=== PATIENT | female | born 1990 | race Caucasian/White ===

== ENCOUNTER 2023-04-06 14:09 | Emergency (ER) | payer OTHER, SELFPAY ==
[2023-04-06 14:17] VITALS: BP 125/67; PULSE 114; RESP 18; TEMP 37.2; O2SAT 98
--- NOTE | 2023-04-06 14:22 | ED.EAR ---
HPI - Ear Problem General Chief complaint: Ear Stated complaint: Ear Pain Time Seen by Provider: 04/06/23 14:22 Source: patient and RN notes reviewed History of Present Illness HPI Narrative: Patient is a 32-year-old female presents to urgent care with complaints of right ear pain. Patient states she had a lighted a sinus pressure and heavily blew her nose last night causing immediate muffled sound, drainage from the ear and pain. Patient has not taken anything [id number]. Patient is 7 months . No other acute complaints. No acute distress noted. Patient aware of the plan of care. Some parts of this dictation were generated by voice recognition software and may contain typographical and/or grammatical inaccuracies. Related Data Home Medications Medication Instructions Recorded Confirmed aripiprazole 15 mg tablet mg 04/06/23 bupropion HCl 150 mg 24 hr tablet, mg PO 04/06/23 extended release lamotrigine 100 mg tablet mg 04/06/23 [id number] < 1 pkg PO 04/06/23 mg-iron oral combo pack sertraline 50 mg tablet mg 04/06/23 Allergies Allergy/AdvReac Type Severity Reaction Status Date / Time No Known Allergies Allergy Verified 04/06/23 14:28 Review of Systems Review of Systems: CONSTITUTIONAL: Denies fever, chills, or sweats. EYES: Denies visual changes, redness, or discharge. ENT: Denies rhinorrhea, congestion, sore throat. Reports of right otalgia CARDIOVASCULAR: Denies chest pain, palpitations, or edema. RESPIRATORY: Denies cough or dyspnea. GASTROINTESTINAL: Denies abdominal pain, nausea, vomiting, or diarrhea. GENITOURINARY: Denies dysuria or hematuria. SKIN: Denies rash or itching. MUSCULOSKELETAL: Denies back pain, joint pain, or myalgia. NEUROLOGIC: Denies headache, numbness, or weakness. All other systems reviewed are negative, except as documented in HPI. PMFSH Comments At the time of my signature, I reviewed and agree with the nursing past medical, surgical, social, and family history. There is no relevant family history pertinent to the patient complaint. Exam Narrative: GENERAL: This is a well-nourished, well-developed patient, in no apparent distress. HEAD: normocephalic, atraumatic. EYES: PERRL. Sclera clear/white. Vision is grossly intact. EARS: External ears normal, auditory canals clear and without drainage, moderately if use, erythema and large effusion to the right TM. Left TM normal without perforation. Hearing grossly intact. NOSE: External nose normal with no obvious nasal discharge, nares without redness, no rhinorrhea. THROAT: Mucous membranes moist, posterior pharynx clear. NECK: Neck supple CARDIOVASCULAR: Regular rate and rhythm without murmurs, gallops, or rubs. RESPIRATORY: Clear to auscultation. Breath sounds equal bilaterally. No wheezes, rales, or rhonchi. SKIN: warm, intact with no suspicious lesions or rash, good texture and turgor. NEURO: awake, alert, and oriented to person, place and time. There were no obvious focal neurologic abnormalities. EXTREMITIES: No clubbing, cyanosis, or edema. Course Course Level of Care: Express Care Visit Vital Signs Vital signs: Vital Signs Temperature 99 F 04/06/23 14:17 Pulse Rate 114 H 04/06/23 14:17 Respiratory Rate 18 04/06/23 14:17 Blood Pressure 125/67 04/06/23 14:17 Pulse Oximetry 98 04/06/23 14:17 Oxygen Delivery Room Air 04/06/23 14:17 Temperature 99 F 04/06/23 14:17 Pulse Rate 114 H 04/06/23 14:17 Respiratory Rate 18 04/06/23 14:17 Blood Pressure 125/67 04/06/23 14:17 Pulse Oximetry 98 04/06/23 14:17 Oxygen Delivery Room Air 04/06/23 14:17 Reviewed Medical Decision Making MDM Narrative Medical decision making narrative: Advised patient complete the oral antibiotic regimen as prescribed. Be sure to eat and drink with medication. Use Tylenol as needed for pain or discomfort or warm compress to the ear. Do not put anything in t
== END 2023-04-06 14:53 | disposition home or self-care (01) ==
PROVIDERS: Emergency Provider Nurse Practitioner Family
DX: O99.891 Other specified diseases and conditions complicating pregnancy (principal); Z3A.00 Weeks of gestation of pregnancy not specified; H66.91 Otitis media, unspecified, right ear
CPT/HCPCS: 99213; G0463